=== PATIENT | male | born 1985 | race Native Hawaiian/Other Pacific Islander ===

== ENCOUNTER 2016-11-13 15:44 | Outpatient (CLI) | payer OTHER | END 2016-11-13 15:56 | disposition short-term general hospital (02) | LOC: AMB 15:44 | DX: S40.812A Abrasion of left upper arm, initial encounter (principal); S40.811A Abrasion of right upper arm, initial encounter; S00.81XA Abrasion of other part of head, initial encounter; R07.89 Other chest pain; M25.571 Pain in right ankle and joints of right foot; V49.88XA Car occupant (driver) (passenger) injured in other specified transport accidents, initial encounter; Y92.414 Local residential or business street as the place of occurrence of the external cause | CPT/HCPCS: A0425; A0429 ==

== ENCOUNTER 2016-11-13 16:01 | Emergency (ER) | payer OTHER ==
[~2016-11-13] VITALS: Ht 172.7 cm; Wt 99.8 kg
[2016-11-13 20:25] VITALS: BP 138/87; TEMP 98.7
== END 2016-11-13 20:27 | disposition home or self-care (01) ==
LOC: ED 16:01
DX: S22.42XA Multiple fractures of ribs, left side, initial encounter for closed fracture (principal); F14.10 Cocaine abuse, uncomplicated; F19.10 Other psychoactive substance abuse, uncomplicated; R10.9 Unspecified abdominal pain; V49.3XXA Car occupant (driver) (passenger) injured in unspecified nontraffic accident, initial encounter
CPT/HCPCS: 80307; 80320; 99283; G0479; Q9963

== ENCOUNTER 2017-01-11 15:16 | Outpatient (CLI) | payer OTHER | END 2017-01-11 19:24 | disposition home or self-care (01) | LOC: RAD 15:16 | DX: R76.0 Raised antibody titer (principal); I73.00 Raynaud's syndrome without gangrene; H16.223 Keratoconjunctivitis sicca, not specified as Sjogren's, bilateral ==

== ENCOUNTER 2017-08-11 12:22 | Outpatient (CLI) | payer OTHER ==
[2017-08-11 12:55] LABS: PLATELET COUNT 223 K/uL (142-355)
[2017-08-11 12:59] LABS: POTASSIUM 4.2 mmol/L (3.6-5.2); SODIUM 135 mmol/L (136-145)
== END 2017-08-11 19:43 | disposition home or self-care (01) ==
LOC: LABW 12:22
PROVIDERS: Nurse Practitioner
DX: Z01.818 Encounter for other preprocedural examination (principal)
CPT/HCPCS: 36415; 80048; 85027